=== PATIENT | male | born 1950 | race Caucasian/White ===

== ENCOUNTER 2020-12-04 22:29 | Emergency (ER) | payer MEDICARE, OTHER ==
[~2020-12-04 22:29] MED LIST: AMIODARONE HCL200 MG PO; ASPIR 8181 MG PO; ASPIRIN CHEWABL81 MG PO; ASPIRIN EC81 MG PO; BUSPAR 10MG10 MG PO; CLARITIN10 MG PO; CORDARONE 200M200 MG PO; DAILY VITAMIN1 EAC2 PO; ELIQUIS5 MG PO; FEOSOL325 MG PO; FLONASE 0.05% N16 GM; FUROSEMIDE40 MG PO; HYDROXYZINE HCL10 MG PO; IMDUR ER TAB 3030 MG PO; LASIX20 MG PO; LEVAQUIN500 MG PO; LISINOPRIL2.5 MG PO; MECLIZINE HCL25 MG PO; MELATONIN3 MG PO; METOPROLOL SUCC25 MG PO; NITROGLYCERIN0.4 MG SL; NITROSTAT0.4 MG SL; NORVASC10 MG PO; OMNICEF 300 MG300 MG PO; PACERONE200 MG PO; RANEXA500 MG PO; TESSALON PERLE100 MG PO; THIAMINE HCL50 MG PO; TOPROL XL50 MG PO; TYLENOL 500 MG500 MG PO; TYLENOL W/CODEIN1 E1 PO; VENTOLIN HFA 66.7 GM INH; VIBRAMYCIN100 MG PO; VITAMIN D325 MCG PO; ZESTRIL5 MG PO
[2020-12-04 23:14] LABS: HEMOGLOBIN 15.1 gm/dl (14.0-17.5); RED BLOOD COUNT 5.33 M/UL (4.20-5.50)
[2020-12-04 23:36] LABS: BUN/CREATININE RATIO 12 (0-10)
== END 2020-12-05 03:10 | disposition home or self-care (01) ==
LOC: ER1 22:29
PROVIDERS: Physician Assistant
DX: I13.0 Hypertensive heart and chronic kidney disease with heart failure and stage 1 through stage 4 chronic kidney disease, or unspecified chronic kidney disease (principal); I50.22 Chronic systolic (congestive) heart failure; N18.9 Chronic kidney disease, unspecified; D69.6 Thrombocytopenia, unspecified; I42.0 Dilated cardiomyopathy; I48.91 Unspecified atrial fibrillation; E78.5 Hyperlipidemia, unspecified; Z86.73 Personal history of transient ischemic attack (TIA), and cerebral infarction without residual deficits; Z79.01 Long term (current) use of anticoagulants; Z79.899 Other long term (current) drug therapy
CPT/HCPCS: 71045; 80053; 82550; 82553; 83874; 84484; 85025; 93005; 99284

== ENCOUNTER 2021-02-15 16:36 | Emergency (ER) | payer MEDICARE, OTHER ==
[2021-02-15 18:01] LABS: HEMOGLOBIN 14.3 gm/dl (14.0-17.5); RED BLOOD COUNT 5.31 M/UL (4.20-5.50); WHITE BLOOD COUNT 8.3 K/UL (4.5-11.0)
[2021-02-15 18:52] LABS: BUN/CREATININE RATIO 13 (0-10)
== END 2021-02-15 23:30 | disposition home or self-care (01) ==
LOC: ER1 16:36
PROVIDERS: Emergency Medicine
DX: R07.9 Chest pain, unspecified (principal); I48.91 Unspecified atrial fibrillation; I11.0 Hypertensive heart disease with heart failure; I50.9 Heart failure, unspecified
CPT/HCPCS: 71045; 80053; 82550; 82553; 83874; 84484; 85025; 93005; 99285

== ENCOUNTER 2021-09-27 11:24 | Emergency (ER) | payer OTHER, MEDICARE ==
[2021-09-27] MEDS ORDERED: HYDROCODON-ACE1 EAC2 PO (17:40)
== END 2021-09-27 17:52 | disposition home or self-care (01) ==
LOC: ER1 11:24
DX: S42.441A Displaced fracture (avulsion) of medial epicondyle of right humerus, initial encounter for closed fracture (principal); S40.011A Contusion of right shoulder, initial encounter; R51.9 Headache, unspecified; I13.0 Hypertensive heart and chronic kidney disease with heart failure and stage 1 through stage 4 chronic kidney disease, or unspecified chronic kidney disease; I50.9 Heart failure, unspecified; I48.91 Unspecified atrial fibrillation; N18.9 Chronic kidney disease, unspecified; F17.220 Nicotine dependence, chewing tobacco, uncomplicated
CPT/HCPCS: 29105; 70450; 71045; 72125; 73030; 73080; 99284